=== PATIENT | female | born 1965 | race Caucasian/White ===

== ENCOUNTER 2017-02-13 05:53 | Emergency (ER) | payer OTHER ==
[~2017-02-13] VITALS: Ht 170.2 cm; Wt 117.9 kg
[2017-02-13 06:40] LABS: Basophils # (auto) 0 uL; Basophils % (auto) 0.4 % (0.0-2.0); Eosinophils # (auto) 0.2 uL; Hematocrit 39.1 % (36.0-46.0); Lymphocytes # (auto) 2.4 uL; Lymphocytes % (auto) 38.9 % (10.0-50.0); Mean Corpuscular Hemoglobin 29.2 pg (28.0-32.0); Mean Corpuscular Hgb Conc. 33.2 g/dL (32.0-36.0); Mean Platelet Volume 9.2 fL (6.9-10.8); Monocytes # (auto) 0.3 uL; Monocytes % (auto) 4.4 % (0.0-12.0); Neutrophils # (auto) 3.2 uL; Neutrophils % (auto) 53.3 % (37.0-80.0); Nucleated Red Blood Cells % 0.1 %; Platelet Count (auto) 143 10^3/uL (140-450); Red Cell Distribution Width 13.9 % (11.8-14.3); White Blood Cell 6.1 10^3/uL (4.4-10.8)
[2017-02-13 07:04] LABS: Albumin 3.6 g/dL (3.4-5.0); BUN/Creatinine Ratio 19.7; Bilirubin, Total 0.5 mg/dL (0.2-1.0); Potassium 3.5 mmol/L (3.5-5.1); Total Protein 7.6 g/dL (6.4-8.2)
[2017-02-13] MEDS ORDERED: SODIUM CHLORIDE 0.9% 1,000 ML IV ONE (07:15)
[2017-02-13] MEDS ORDERED: DIAZEPAM 5 MG/ML 2ML SYRG IV ONE (07:15)
[2017-02-13] MEDS ORDERED: ONDANSETRON HCL 4 MG/2 ML VIAL IV ONE (07:15)
[2017-02-13] MEDS ORDERED: MECLIZINE HCL 25 MG TAB PO ONE (07:30)
[2017-02-13] MEDS ORDERED: LORazepam 2MG/ML-1ML VIAL IV ONE (07:30)
[2017-02-13 09:42] VITALS: BP 121/59
== END 2017-02-13 10:41 | disposition home or self-care (01) ==
LOC: EDBD 05:53 → ER 05:58
DX: R42 Dizziness and giddiness (principal); E11.9 Type 2 diabetes mellitus without complications; I10 Essential (primary) hypertension; E07.89 Other specified disorders of thyroid
CPT/HCPCS: 36415; 70450; 80053; 81002; 84702; 85025; 93005; 96361; 96374; 96375; 99285; J2060; J2405; J7030; J8597